=== PATIENT | female | born 1955 | race Caucasian/White ===

== ENCOUNTER 2021-09-24 06:44 | Day surgery (SDC) | payer MEDICARE ==
[2021-09-24] MEDS ORDERED: Propofol 200 MG/20 ML SDV ONE (07:26)
[2021-09-24] MEDS ORDERED: fentaNYL 100 MCG/2 ML SDV ONE (07:27)
[2021-09-24] MEDS ORDERED: Midazolam 1 MG/ML 2 ML SDV ONE (07:27)
[2021-09-24] MEDS ORDERED: Sodium Chloride 0.9% 1,000 ML IV SCH (07:30)
== END 2021-09-24 09:50 | disposition home or self-care (01) ==
LOC: JP.SDS 06:44
PROVIDERS: ATTEND Surgery
DX: Z12.11 Encounter for screening for malignant neoplasm of colon (principal); I10 Essential (primary) hypertension; K21.9 Gastro-esophageal reflux disease without esophagitis; E03.9 Hypothyroidism, unspecified; Z87.891 Personal history of nicotine dependence
CPT/HCPCS: G0121; J2250; J2704; J3010; J7030